=== PATIENT | female | born 1975 | race Caucasian/White ===

== ENCOUNTER → 2019-10-09 09:56 | Outpatient (CLI) | payer OTHER, SELFPAY ==
--- NOTE | ~2019-10-09 | DEXA_ITS ---
Bone Density Report Name: Shauna Neville Age: 44 Sex: Female Ethnicity: White Date of : 1975 Indication: height loss; history of glucocorticoids; end stage renal disease; Referring Provider: DAILY, VENANCIO Dhaliwal Study: Bone densitometry was performed. Exam Date: October 09, 2019 Accession number: [id number] Bone Density: Region BMD T-score Z-score Classification AP Spine (L1-L4) 1.118 0.6 1.0 Normal Femoral Neck (Left) 0.991 1.3 1.6 Normal Total Hip (Left) 1.164 1.8 2.1 Normal Femoral Neck (Right) 1.066 2.0 2.3 Normal Total Hip (Right) 1.215 2.2 2.5 Normal Total Hip Mean 1.190 2.0 2.3 Normal World Health Organization criteria for BMD impression classify patients as: Normal (T-score at or above -1.0), Osteopenia (T-score between -1.0 and -2.5), or Osteoporosis (T-score at or below -2.5). 10-year Fracture Risk: FRAX not reported because: Premenopausal woman All T-scores for Spine Total, Hip Total, Femoral Neck at or above -1.0 Clinical Information Provided by Patient: Has taken Glucocorticoids Has used the following medications: Vitamin D Has the following medical conditions: End stage renal disease Patient maximum height was 72 Drinks caffeinated beverages Onset of menses at age 15 Premenopausal Number of children 0 Impression: The patient's bone mass is within expected range for age, gender and ethnicity. The patient has risk factors, including: history of glucocorticoid therapy. Discussion: BONE DENSITY IS WITHIN EXPECTED LIMITS FOR AGE, SEX AND RACE. Bone density is within expected limits for age, sex and race at all sites measured. The patient should follow a healthful lifestyle (good nutrition with adequate calcium and vitamin D, and appropriate weight-bearing exercise). Follow-Up: Consider repeating this study in 5 years or sooner if there is some new clinical indication. Reported by: WINSTON on 10/09/2019 10:42:00 AM. Reviewed, dictated and finalized at location ALeticia MCKEE
--- NOTE | ~2019-10-09 | XR_ITS ---
EXAMINATION: XR knee LT 3V DATE: 10/09/2019 10:41 INDICATION: Left knee pain. TECHNIQUE: 3 views of left knee were obtained. COMPARISON: None. FINDINGS: Bone alignment is normal. No fracture. There is mild tricompartmental osteoarthritis. There is a small knee joint effusion. IMPRESSION: 1. Mild left knee osteoarthritis. 2. Small left knee joint effusion. Reviewed, dictated and finalized at location A.
== END ==
PROVIDERS: Visit Provider Family Medicine
DX: Z79.899 Other long term (current) drug therapy (principal); M17.12 Unilateral primary osteoarthritis, left knee; M25.462 Effusion, left knee
CPT/HCPCS: 73562; 77080

== ENCOUNTER → 2019-12-09 08:15 | Outpatient (CLI) | payer OTHER, SELFPAY ==
--- NOTE | ~2019-12-09 | MR_ITS ---
EXAMINATION: MR knee LT wo con DATE: 12/09/2019 09:01 INDICATION: Anterior left knee pain and swelling. TECHNIQUE: Magnetic resonance imaging (MRI) of the left knee was performed without intravenous contra st. Sequences included axial PD-weighted FS FSE, coronal PD-weighted FSE and PD-weighted FS FSE, sagi ttal PD-weighted FSE, and sagittal T2-weighted FS FSE. COMPARISON: Left knee radiographs 10/09/2019 FINDINGS: Medial compartment: Medial meniscus is normal. Medial compartment cartilage is normal. Lateral compartment: Lateral meniscus is normal. Lateral compartment cartilage is normal. Patellofemoral compartment: There is full-thickness cartilage loss of patellar lateral facet with mild subchondral edema-like mar row signal intensity. There is full-thickness cartilage loss of lateral trochlea with mild subchondra l edema-like marrow signal intensity. Ligaments and tendons: Anterior and posterior cruciate ligaments are normal. Medial collateral ligament is normal. There are changes of prior sprain of fibular collateral ligament characterized by increased signal intensity p roximally. The patellar tendon is normal. Fluid: There is a moderate-sized knee joint effusion. There is trace fluid in a Marshall's cyst. There is mild prepatellar and superficial infrapatellar bursitis. IMPRESSION: 1. Severe chondrosis of patellofemoral compartment. 2. Moderate-sized knee joint effusion. Reviewed, dictated and finalized at location A.
== END ==
PROVIDERS: Visit Provider Orthopaedic Surgery
DX: M25.562 Pain in left knee (principal); M22.2X2 Patellofemoral disorders, left knee; M25.462 Effusion, left knee
CPT/HCPCS: 73721

== ENCOUNTER → 2020-05-13 17:55 | Outpatient (CLI) | payer OTHER, SELFPAY ==
--- NOTE | ~2020-05-13 | MM_ITS ---
EXAMINATION: MM screening divya BI w [facility] HISTORY: Screening mammogram TECHNIQUE: Craniocaudal and mediolateral oblique 3-D tomosynthesis images were obtained and synthetic 2-D images were generated. CAD analysis was submitted and interpreted. COMPARISON: No prior mammogram is available for comparison at this institution. BREAST PARENCHYMAL COMPOSITION: There are scattered areas of fibroglandular density. FINDINGS: There is no evidence of suspicious mass, calcification, or architectural distortion to sugg est malignancy in either breast. There has been no suspicious interval change. IMPRESSION: 1. No mammographic evidence of malignancy. 2. Recommend routine screening mammography in one year. BI-RADS Category 1: Negative Reviewed, dictated and finalized at location A. 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
== END ==
PROVIDERS: Visit Provider Nurse Practitioner Obstetrics & Gynecology
DX: Z12.31 Encounter for screening mammogram for malignant neoplasm of breast (principal)
CPT/HCPCS: 77063; 77067

== ENCOUNTER 2020-10-18 02:52 | Emergency (ER) | payer OTHER, SELFPAY ==
[2020-10-18] VITALS (11 sets, daily range): BP systolic 115–154; BP diastolic 70–88; PULSE 64–94; RESP 12–18; TEMP 36.4–36.8; O2SAT 93–100
--- NOTE | ~2020-10-18 | US_ITS ---
US abdomen limited INDICATION: Right upper quadrant pain PROCEDURE: Realtime right upper abdominal ultrasound. COMPARISON: No prior studies for comparison. FINDINGS: The pancreas is normal without focal mass or pancreatic ductal dilation. Liver is enlarged . No focal hepatic masses are identified. There is normal directional flow in the portal vein. Gallbladder contains sludge. No definite stones, gallbladder wall thickening or pericholecystic fluid . Common bile duct measures 7 mm. No sonographic Rivers's sign. There are multiple small cysts in t he right kidney. IMPRESSION: 1: Gallbladder sludge with mild biliary dilatation. Consider acalculous cholecystitis in the appropri ate clinical setting. 2: Hepatomegaly. Reviewed, dictated and finalized at location A. IMPRESSION: 1: Gallbladder sludge with mild biliary dilatation. Consider acalculous cholecy stitis in the appropriate clinical setting. 2: Hepatomegaly.
--- NOTE | ~2020-10-18 | CT_ITS ---
EXAMINATION: CT abdomen pelvis wo con DATE: 10/18/2020 04:17 INDICATION: Lower abdominal pain bilaterally. TECHNIQUE: Computed tomography (CT) of the abdomen and pelvis was performed without intravenous contr ast. The dose-length product was 1482.05 mGy-cm. Automated exposure control and iterative reconstruct ion technique were employed. COMPARISON: CT dated 06/08/2016. FINDINGS: Lung bases are unremarkable. Heart size normal. No significant pleural or pericardial effus ion. No significant vascular abnormality. No lymphadenopathy. Mild left perinephric stranding, nonspe cific. There are in numerable bilateral renal cysts, consistent with polycystic kidney disease. There is a t ransplant kidney in the right pelvis. Bladder is decompressed. There is an IUD in the endometrium. Th ere is fluid throughout the small bowel which is nondilated which may represent ileus or enteritis. The liver, spleen, pancreas, adrenal glands are unremarkable. Normal appendix. Bladder is decompresse d. IMPRESSION: 1. Fluid-filled nondilated small bowel loops which may relate to ileus or enteritis. 2: Mild left perinephric stranding. Cannot exclude pyelonephritis. Innumerable renal cysts, consisten t with adult polycystic kidney disease. Reviewed, dictated and finalized at location A. IMPRESSION: 1. Fluid-filled nondilated small bowel loops which may relate to ileus or enter itis. 2: Mild left perinephric stranding. Cannot exclude pyelonephritis. Innumerable renal cysts, consistent with adult polycystic kidney disease.
--- NOTE | 2020-10-18 03:19 | ED.ABDPAIN ---
HPI - Abdominal Pain General Chief Complaint: Abdominal Pain <Linus Corrales MD - Last Filed: 10/29/20 09:54> Stated Complaint: abdominal pain <Linus Corrales MD - Last Filed: 10/29/20 09:54> Time Seen by Provider: 10/18/20 03:04 <Linus Corrales MD - Last Filed: 10/29/20 09:54> History of Present Illness HPI narrative: 45 yo female w/ h/o polycystic kidney disease presents to the ED for abdominal pain. RUQ abdominal pain for about the past 10 days. Radiates to mid back. Associated with nausea and vomiting. Scheduled for US ,but pain became worse. She has a h/o renal transplant. <Linus Corrales MD - Last Filed: 10/29/20 09:54> Related Data Home Medications: Home Medications Medication Instructions Recorded Confirmed acyclovir 10/18/20 10/18/20 amlodipine 10/18/20 aspirin 10/18/20 atorvastatin 10/18/20 levothyroxine 10/18/20 mycophenolate sodium [Myfortic] PO 10/18/20 prednisone 10/18/20 ramipril mg 10/18/20 tacrolimus [Prograf] 10/18/20 <Linus Corrales MD - Last Filed: 10/29/20 09:54> Allergies/Adverse Reactions: Allergies Allergy/AdvReac Type Severity Reaction Status Date / Time Penicillins Allergy Mild Hives Verified 10/18/20 03:03 <Linus Corrales MD - Last Filed: 10/29/20 09:54> Review of Systems Review of Systems: All systems reviewed & are unremarkable except as noted in HPI and below <Linus Corrales MD - Last Filed: 10/29/20 09:54> Constitutional: Constitutional: Denies fever(s) <Linus Corrales MD - Last Filed: 10/29/20 09:54> ENT: Denies sore throat <Linus Corrales MD - Last Filed: 10/29/20 09:54> Cardiovascular: Cardiovascular: Denies chest pain <Linus Corrales MD - Last Filed: 10/29/20 09:54> Respiratory: Respiratory: Denies dyspnea <Linus Corrales MD - Last Filed: 10/29/20 09:54> Gastrointestinal: Gastrointestinal: Reports abdominal pain, Reports nausea and Reports vomiting <Linus Corrales MD - Last Filed: 10/29/20 09:54> [facility] Past Medical History Medical History: Medical History (Updated 10/20/20 @ 00:00 by Benita Torres) Hypertension Polycystic kidney disease <Linus Corrales MD - Last Filed: 10/29/20 09:54> Surgical History Surgical History: Surgical History (Updated 10/18/20 @ 08:09 by Germaine Capellan MD) History of kidney transplant <Linus Corrales MD - Last Filed: 10/29/20 09:54> Social History Social History: Social History (Updated 10/18/20 @ 08:09 by Germaine Capellan MD) Smoking status: Never smoker Alcohol use details: social drinker <Linus Corrales MD - Last Filed: 10/29/20 09:54> Exam Const: General: no acute distress and alert <Germaine Capellan MD - Last Filed: 10/18/20 19:19> Orientation/consciousness: patient oriented x3 <Germaine Capellan MD - Last Filed: 10/18/20 19:19> Resp: Effort & Inspection: normal respiratory effort and no retractions <Germaine Capellan MD - Last Filed: 10/18/20 19:19> Auscultation: clear to auscultation bilaterally <Germaine Capellan MD - Last Filed: 10/18/20 19:19> Cardio: Rate: regular rate <Germaine Capellan MD - Last Filed: 10/18/20 19:19> Rhythm: regular rhythm <Germaine Capellan MD - Last Filed: 10/18/20 19:19> Heart sounds: no murmurs <Germaine Capellan MD - Last Filed: 10/18/20 19:19> GI: GI Palp: Yes Soft to palpation, Yes Tenderness to palpation present (GI) (RUQ), Yes Guarding due to palpation present (GI) and No Rigid due to palpation <Germaine Capellan MD - Last Filed: 10/18/20 19:19> Auscultation: normal bowel sounds <Germaine Capellan MD - Last Filed: 10/18/20 19:19> Skin: General skin exam: normal color <Germaine Capellan MD - Last Filed: 10/18/20 19:19> Neuro: General: patient oriented x3, moves all extremities and CN's II-XI intact bilaterally <Germaine Capellan MD - Last Filed: 10/18/20 19:19> Extrem: General: normal to inspection
[2020-10-18 03:22] LABS: Basophils Percent Auto 0.3 % (0.2-1.2); Eosinophils Absolute Auto 0.1 K/mm3 (0-0.3); Eosinophils Percent Auto 0.7 % (0-4.4); Hematocrit 37.7 % (37.0-47.0); Hemoglobin 12.4 g/dL (12.0-15.0); Immature Granulocyte Absolute 0.03 K/mm3 (0.00-0.031); Immature Granulocyte Percent A 0.3 % (0-0.5); Lymphocytes Absolute Auto 1.48 K/mm3 (0.9-3.2); Lymphocytes Percent Auto 13.7 % (18.3-44.2); Mean Corpuscular HGB Conc 32.9 g/dl (32-36); Mean Corpuscular Hemoglobin 30.5 pg (26-34); Mean Corpuscular Volume 92.9 fl (80-100); Mean Platelet Volume 10.3 fl (7.4-10.4); Monocytes Absolute Auto 1.2 K/mm3 (0.1-0.6); Monocytes Percent Auto 10.9 % (2.6-8.5); Neutrophils Percent Auto 74.1 % (45.5-73.1); Platelet Count Result 191 k/mm3 (150-375); Red Blood Count 4.06 M/mm3 (4.2-5.4); Red Cell Distribution Width 13.4 % (11.5-14.5); White Blood Count 10.8 K/mm3 (4.5-10.0)
[2020-10-18 03:37] LABS: Alanine Aminotransferase 26 U/L (4-35); Albumin Level 4.2 g/dL (3.5-5.1); Alkaline Phosphatase 53 U/L (38-126); Anion Gap 11 mmol/L (8-16); Aspartate Amino Transferase 25 U/L (14-36); Bilirubin,Total 1.3 mg/dL (0.2-1.3); Blood Urea Nitrogen 23 mg/dL (7-17); Calcium 9.3 mg/dL (8.4-10.2); Carbon Dioxide 17 mmol/L (22-30); Chloride 104 mmol/L (98-107); Estimated CRCL calculation 65 ml/min; Estimated Glomerular Filt Rate 41; Glucose 99 mg/dL (65-110); Lipase 189 U/L (23-300); Potassium 4.6 mmol/L (3.4-5.0); Sodium 132 mmol/L (137-145)
[2020-10-18] MEDS: ONDANSETRON INJ 4 MG/2 ML VIAL IV PUSH ×2 (03:41→18:38)
[2020-10-18] MEDS: fentaNYL CITRATE INJ (*CRX) 100 MCG/2 ML VIAL 50 MCG IV PUSH (03:41)
[2020-10-18 04:17] LABS: Add Urine Microscopic? YES; Appearance Urine Clear (Clear); Bacteria Urine Trace /hpf; Bilirubin Urine Negative (Negative); Blood Urine Negative (Negative); Color Urine Yellow (Yellow); Glucose Urine UA Negative (Negative); Ketones Urine Negative (Negative); Leukocyte Esterase Ur Trace LEU/UL (Negative); Mucus Urine Rare /lpf; Nitrate Urine Negative (Negative); Protein Urine Negative (Negative); RBC Urine 0-2 /hpf (0-2); Specific Grav Ur 1.015 (1.001-1.035); Squamous Epithelial Cell Urine Few /hpf (Few); Urobilinogen Urine Negative mg/dL (<2.0); WBC Urine 0-3 /hpf
[2020-10-18] MEDS: SODIUM CHLORIDE 0.9% IV 1,000 ML 999 ML IV CONT (04:20)
--- NOTE | 2020-10-18 09:02 | PC.NURSE ---
Spoke with [facility] transfer center to give triage information about patient. They said that she has been accepted to the surgical service but will likely not get a bed until this afternoon after discharges. Per surgeon pt unlikely to go to surgery today so she does not need to be NPO at this time. Pt given ice chips, refusing food at this time.
[2020-10-18] MEDS: HYDROmorphone HCL INJ (*CRX) 1 MG/ML SYR 0.5 MG IV PUSH ×2 (09:54→14:12)
--- NOTE | 2020-10-18 18:20 | PC.NURSE ---
Patient reports increased pain, EDP aware, orders obtained.
[2020-10-18] MEDS: HYDROmorphone HCL INJ (*CRX) 1 MG/ML SYR IV PUSH (18:37)
[2020-10-18] MEDS: SODIUM CHLORIDE 0.9% IV 1,000 ML 150 ML IV CONT (18:38)
--- NOTE | 2020-10-18 22:04 | PC.NURSE ---
Nursing report called to JARRET Anne, at [facility]. Patient is to go to Room 6583-bed 2. Phone number to floor is [phone]
--- NOTE | 2020-10-18 22:08 | PC.NURSE ---
Called [facility] to request transport. ETA [phone]
--- NOTE | 2020-10-18 23:39 | PC.NURSE ---
called [facility] for ETA update. ETA [phone]
--- NOTE | 2020-10-18 23:55 | PC.NURSE ---
Patient requested to take her scheduled medications, ERP notified. Patient has her medications with her, per ERP is okay to take her own prescribed meds.
[2020-10-19 00:57] VITALS: BP 115/78; PULSE 75; RESP 18; TEMP 36.9; O2SAT 98
== END 2020-10-19 00:59 | disposition short-term general hospital (02) ==
PROVIDERS: Emergency Provider Emergency Medicine; PCP Family Medicine
DX: K81.0 Acute cholecystitis (principal); N28.1 Cyst of kidney, acquired; I10 Essential (primary) hypertension; Z94.0 Kidney transplant status; R16.0 Hepatomegaly, not elsewhere classified
CPT/HCPCS: 36415; 74176; 76705; 80053; 81001; 81025; 83690; 85025; 96361; 96365; 96375; 96376; 99285; J0696; J1170; J2405; J3010; J7030

== ENCOUNTER → 2021-02-21 10:15 | Outpatient (CLI) | payer OTHER, SELFPAY ==
--- NOTE | ~2021-02-21 | CT_ITS ---
EXAMINATION: CT sinus wo con DATE: 02/21/2021 10:34 INDICATION: Spontaneous ecchymosis. Previous sinus surgery in 2019.. TECHNIQUE: Computed tomography (CT) of the paranasal sinuses was performed without intravenous contra st. The dose-length product was 280.01 mGy-cm. Automated exposure control and iterative reconstructio n technique were employed. COMPARISON: None FINDINGS: There is mucosal thickening of the maxillary sinuses. No mucoperiosteal reaction. Ostiomeat al units are patent. Rightward nasal septal deviation. Mucosal thickening of the anterior ethmoid air cells. Mastoids are pneumatized. No air-fluid levels. IMPRESSION: 1. Mild mucosal thickening of the maxillary and ethmoid sinuses. Reviewed, dictated and finalized at location A. 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
== END ==
PROVIDERS: PCP Family Medicine; Visit Provider Otolaryngology
DX: J32.0 Chronic maxillary sinusitis (principal); J32.2 Chronic ethmoidal sinusitis
CPT/HCPCS: 70486

== ENCOUNTER 2021-04-04 08:34 | Outpatient (CLI) | payer OTHER, SELFPAY ==
[2021-04-04 09:15] LABS: Anion Gap 8 mmol/L (8-16); Blood Urea Nitrogen 20 mg/dL (7-17); Calcium 9.2 mg/dL (8.4-10.2); Carbon Dioxide 24 mmol/L (22-30); Chloride 106 mmol/L (98-107); Estimated Glomerular Filt Rate 41; Glucose 105 mg/dL (65-110); Prothrombin Time 12.9 Seconds (11.1-14.7); Sodium 138 mmol/L (137-145)
[2021-04-04 09:16] LABS: Partial Thromboplastin Time 24.1 SECONDS (22.3-36.8)
== END 2021-04-04 08:35 | disposition home or self-care (01) ==
PROVIDERS: Anesthesiology; PCP Family Medicine; Visit Provider Obstetrics & Gynecology
DX: Z94.0 Kidney transplant status (principal); Z01.818 Encounter for other preprocedural examination
CPT/HCPCS: 36415; 80048; 85610; 85730

== ENCOUNTER 2021-04-08 00:13 | Day surgery (SDC) | payer OTHER, SELFPAY ==
[2021-04-02 16:54] VITALS: BMI 32.8
--- NOTE | 2021-04-02 17:03 | SUR.PREOP ---
Report to the Outpatient Waiting Room, entrance under the green pavilion located off [facility], at time _0830 on date _04/08/21 . OR Time: _1030 . - - A mask is required within the hospital. - Preoperative COVID Testing Requirements: No COVID Test needed if: (proof is required; if not received patient will have Rapid Test prior to entry) - Patient has received COVID Vaccine at least 14 days prior to procedure date or - Patient has positive COVID test result within last 90 days of surgery date. COVID Test needed if above criteria is not met If not COVID vaccinated a COVID test must be conducted within 72 hours of surgery and patient is asked to isolate self from time of testing until procedure. You will go to the [facility] for your COVID testing. The [employer] [employer] [facility] site is located at the corner of [address] [facility]. You will only be called if COVID results are positive and your surgeon may reschedule your elective surgery date. Patients may have clear liquids (water, carbonated beverages, clear teas, apple juice) until 3 hours prior to surgery with a maximum of 20 ounces. - No food from midnight until time of surgery - Infants may have breast milk until 4 hours before surgery, infant formula 6 hours prior to surgery. - Children will be allowed to drink immediately following surgery. If applicable, please bring a bottle or sippy cup to assist with drinking. Juice, water, soda, and popsicles are readily available. For infants on formula, please bring formula the day of surgery. Pacifiers are allowed. Take the following medications with a SIP of water the morning of surgery: __amlodipine,levothyroxine Medications to discontinue per physician n/a Date to take last dose__n/a Please no make-up, nail kinyarwanda, hairspray, perfume, deodorant, or body powder the day of surgery. No jewelry (including any body piercings) or valuables the day of surgery, leave them at home. Please take a shower or bath the night before, or the morning of, surgery with an antibacterial soap. Wear comfortable, loose fitting clothing. Children are encouraged to wear pajamas. - Jewelry must be removed prior to entering the operating room. Rings and piercings that are not removed may be cut off. - The hospital will not accept responsibility for valuables. - Please leave all valuables, including medications, at home the day of surgery. If you are going home after surgery, a licensed petroleum transport driver must drive you home. - NO public transportation without another adult. - We recommend that an adult stay with you for 24 hours following discharge. - We also recommend that you do not drive, make important decision, drink alcoholic beverages, or take any drugs that were not prescribed by your health care provider for at least 24 hours after your discharge time. follow any additional instructions given to you from your surgeon. Telephone instructions given to _miguelina romero_and asked if any additional questions and then verbalized understanding. Patient advised to call surgeon office or pre surgery nurse liaison [phone] if any additional questions.
--- NOTE | 2021-04-07 13:45 | P.PNAN_ITS ---
Anes - Initial Pre Proc Eval Procedure: Operation Date: 04/08/21 10:30 Proposed Procedures p Hysteroscopy Dilation and Curettage Endometrial Ablation using Kathrine, with Intrauterine Device Removal - Steve Gallagher MD Date/Time: 04/07/21 13:45 Surgeon: Steve Gallagher MD Pre Op Diagnosis: menorrhagia Patient Data Age: 46 Gender: F Height: 1.8 m Weight: 106.8 kg Allergies Allergy/AdvReac Type Severity Reaction Status Date / Time adhesive tape Allergy Intermediate Rash Verified 04/08/21 08:59 Penicillins Allergy Intermediate Hives Verified 04/08/21 08:59 Home Medications Medication Instructions Recorded Confirmed Type acyclovir 400 mg PO BID 10/18/20 04/08/21 History amlodipine 2.5 mg PO DAILY 10/18/20 04/08/21 History aspirin 81 mg PO EVERY OTHER DAY 10/18/20 04/08/21 History atorvastatin 10 mg PO DAILY 10/18/20 04/08/21 History levothyroxine 100 mcg PO DAILY 10/18/20 04/08/21 History mycophenolate sodium [Myfortic] 180 mg PO BID 10/18/20 04/08/21 History prednisone 5 mg PO DAILY 10/18/20 04/08/21 History ramipril 10 mg PO BID 10/18/20 04/08/21 History tacrolimus [Prograf] 1 mg PO BID 10/18/20 04/08/21 History doxycycline hyclate 100 mg PO DAILY #14 cap 04/08/21 Rx Patient hx anesthesia problems: none Family hx anesthesia problems: none Results Review: All pre-operative results and documents have been reviewed as part of the pre-operative evaluation. [facility] Past Medical History Medical History Abnormal uterine bleeding Hyperlipidemia Hypertension Obesity Polycystic kidney disease Surgical History Surgical History (Updated 04/08/21 @ 09:29 by Kelle Mendez CRNA) History of kidney transplant Kidney transplanted kidney transplant 2011-no problems doing well on meds Social History Social History Smoking status: Former smoker Tobacco type: cigarettes Smoking end date: 03/22/09 Alcohol intake: current Drinks per week: 3 Alcohol use details: social drinker Living arrangements: with family Spiritual care concerns: No Anes - Eval Final PreProcedure Day of Procedure 04/07/21 13:45 Patient weight: obese Heart: regular rate and rhythm Lungs: clear to auscultation and normal air movement Airway: Mallampati scale class II Neurological: alert and oriented Last oral intake: >/= 8 hours ASA classification: III Emergent: no Anesthetic plan: proceed Anesthesia type and monitoring: general GIVS and LMA Results Review: All pre-operative results and documents have been reviewed as part of the pre-operative evaluation. Informed Consent: The patient's anesthetic plan and its attendant risks and benefits were discussed with the patient/family/POA. Questions were solicited and answers provided to the satisfaction of the patient/family/POA.
[2021-04-08] VITALS (8 sets, daily range): BP systolic 121–137; BP diastolic 72–87; PULSE 48–59; RESP 12–16; TEMP 36.2–37.2; O2SAT 92–100
[2021-04-08] MEDS: ACETAMINOPHEN 500 MG TABLET 1000 MG PO (09:03)
[2021-04-08] MEDS: LACTATED RINGERS 1,000 ML 30 ML IV CONT (09:24)
--- NOTE | 2021-04-08 09:26 | WPDANESEPP ---
Anes - Eval Pre Procedure Procedure: Operation Date: 04/08/21 10:30 Proposed Procedures p Hysteroscopy Dilation and Curettage Endometrial Ablation using Kathrine, with Intrauterine Device Removal - Steve Gallagher MD Date/Time: 04/08/21 09:26 Pre Op Diagnosis: menorrhagia Patient Data Age: 46 Gender: F Height: 1.8 m Weight: 111.7 kg Last Vital Signs Temp 37.2 C 04/08/21 09:13 Pulse 57 L 04/08/21 09:13 Resp 16 04/08/21 09:13 BP 137/83 04/08/21 09:13 Pulse Ox 99 04/08/21 09:13 Allergies Allergy/AdvReac Type Severity Reaction Status Date / Time adhesive tape Allergy Intermediate Rash Verified 04/08/21 08:59 Penicillins Allergy Intermediate Hives Verified 04/08/21 08:59 Home Medications Medication Instructions Recorded Confirmed Type acyclovir 400 mg PO BID 10/18/20 04/08/21 History amlodipine 2.5 mg PO DAILY 10/18/20 04/08/21 History aspirin 81 mg PO EVERY OTHER DAY 10/18/20 04/08/21 History atorvastatin 10 mg PO DAILY 10/18/20 04/08/21 History levothyroxine 100 mcg PO DAILY 10/18/20 04/08/21 History mycophenolate sodium [Myfortic] 180 mg PO BID 10/18/20 04/08/21 History prednisone 5 mg PO DAILY 10/18/20 04/08/21 History ramipril 10 mg PO BID 10/18/20 04/08/21 History tacrolimus [Prograf] 1 mg PO BID 10/18/20 04/08/21 History Patient hx anesthesia problems: none Family hx anesthesia problems: none Results Review: All pre-operative results and documents have been reviewed as part of the pre-operative evaluation. [facility] Past Medical History Medical History Abnormal uterine bleeding Hyperlipidemia Hypertension Obesity Polycystic kidney disease Surgical History Surgical History (Updated 04/08/21 @ 09:29 by Kelle Mendez CRNA) History of kidney transplant Kidney transplanted kidney transplant 2011-no problems doing well on meds Social History Social History Smoking status: Former smoker Tobacco type: cigarettes Smoking end date: 03/22/09 Alcohol intake: current Drinks per week: 3 Alcohol use details: social drinker Living arrangements: with family Spiritual care concerns: No Exam Day of Procedure 04/08/21 09:26 Patient weight: obese Heart: regular rate and rhythm Lungs: clear to auscultation Airway: Mallampati scale class II Neurological: alert and oriented
--- NOTE | 2021-04-08 09:37 | WPDHPUPDATE1 ---
History and Physical Update Update Date/Time: 04/08/21 09:37 History and Physical has been reviewed, including an updated exam of the patient. There are NO changes in the patient's condition. Risks, benefits, and alternatives have been discussed and questions answered. Patient agrees to proceed with procedure.
--- NOTE | 2021-04-08 10:27 | W.PM.PROC2 ---
Procedure Note - Detailed Date of Procedure 04/08/21 Pre-op Diagnosis menorrhagia, malpositioned IUD Post-op Diagnosis same Procedure Performed endometrial ablation with hysteroscopy d&c, hysteroscopic IUD removal Surgeon Steve Gallagher MD Anesthesia MAC Indications Severe menorrhagia. Malpositioned IUD Findings Normal vulva vagina and cervix. Normal endometrium. malposition/embedded IUD Description of Procedure The patient was taken to the operating room. She was prepped and draped in the dorsal lithotomy position after induction of mac anesthesia. A speculum was placed in the vagina. Cervix grasped with a tenaculum. The cervix was dilated to about 1 cm. The hysteroscope was inserted. The IUD was visualized. It was grasped with hysteroscopic grasper and withdrawn. The above findings were noted. Endometrial curettage was performed with a medium-size curette. All surfaces of the endometrium were affected by the curettage. The specimens were collected and sent to pathology. Measurements were taken of the uterus and cervix. The uterine length was then entered into the hand piece of the Kathrine device. The device was inserted into the intrauterine cavity. The array of the device was expanded. The balloon cuff was inflated. A good seal was achieved. The energy and safety cycles were initiated and completed. The array was collapsed and the instrument was withdrawn after deflating the balloon cuff. Hysteroscope was reinserted. Above findings were noted. The hysteroscope was removed. The patient tolerated the procedure well. The speculum and tenaculum were removed. She was taken to recovery in stable condition. Sponge lap and needle counts were correct x2. Estimated Blood Loss 15 Pathology yes Complications No immediate complications Condition stable Disposition same day
[2021-04-08] MEDS: fentaNYL CITRATE INJ (*CRX) 100 MCG/2 ML VIAL 25 MCG IV PUSH ×2 (11:09→11:12)
== END 2021-04-08 12:25 | disposition home or self-care (01) ==
PROVIDERS: PCP Family Medicine; Visit Provider Obstetrics & Gynecology
PROC: 0U5B8ZZ Destruction of Endometrium, Via Natural or Artificial Opening Endoscopic (ICD-10-PCS; CPT 58563; principal; 2021-04-08 10:30)
DX: N92.0 Excessive and frequent menstruation with regular cycle (principal); N85.8 Other specified noninflammatory disorders of uterus; T83.32XA Displacement of intrauterine contraceptive device, initial encounter; Y84.8 Other medical procedures as the cause of abnormal reaction of the patient, or of later complication, without mention of misadventure at the time of the procedure; I10 Essential (primary) hypertension; E78.5 Hyperlipidemia, unspecified; Q61.3 Polycystic kidney, unspecified; Z94.0 Kidney transplant status; E66.9 Obesity, unspecified; Z68.34 Body mass index [BMI] 34.0-34.9, adult; Z87.891 Personal history of nicotine dependence
CPT/HCPCS: 58563; 58562; 36415; 80048; 85610; 85730; 88300; 88305; A9270; J0690; J1100; J2250; J2270; J2405; J2704; J3010; J7030; J7120

== ENCOUNTER 2021-06-19 14:45 | Emergency (ER) | payer OTHER, SELFPAY ==
[2021-06-19 14:53] VITALS: BP 149/81; PULSE 75; RESP 16; TEMP 36.9; O2SAT 99
--- NOTE | 2021-06-19 14:55 | ED.GENADULT ---
HPI - General Adult General Chief complaint: Wound/Laceration Stated complaint: CUT LEFT THUMB Time Seen by Provider: 06/19/21 14:55 Source: patient Mode of arrival: ambulatory Limitations: no limitations History of Present Illness HPI narrative: 46-year-old female presents with laceration to left thumb. Bleeding controlled on arrival. Notes that she cut herself with a kitchen knife. Kitchen knife was clean. Range of motion and distal neurovascular intact. All systems reviewed and negative except as noted above. Related Data Home Medications Medication Instructions Recorded Confirmed acyclovir 400 mg PO BID 10/18/20 04/08/21 amlodipine 2.5 mg PO DAILY 10/18/20 04/08/21 aspirin 81 mg PO EVERY OTHER DAY 10/18/20 04/08/21 atorvastatin 10 mg PO DAILY 10/18/20 04/08/21 levothyroxine 100 mcg PO DAILY 10/18/20 04/08/21 mycophenolate sodium [Myfortic] 180 mg PO BID 10/18/20 04/08/21 prednisone 5 mg PO DAILY 10/18/20 04/08/21 ramipril 10 mg PO BID 10/18/20 04/08/21 tacrolimus [Prograf] 1 mg PO BID 10/18/20 04/08/21 esomeprazole magnesium 20 mg PO DAILY 06/19/21 06/19/21 levofloxacin 500 mg PO DAILY 06/19/21 06/19/21 Allergies Allergy/AdvReac Type Severity Reaction Status Date / Time adhesive tape Allergy Intermediate Rash Verified 06/19/21 15:00 Penicillins Allergy Intermediate Hives Verified 06/19/21 15:00 Review of Systems Review of Systems: CONSTITUTIONAL: Denies fever, chills, or sweats. EYES: Denies visual changes, redness, or discharge. ENT: Denies rhinorrhea, congestion, sore throat, or otalgia. CARDIOVASCULAR: Denies chest pain, palpitations, or edema. RESPIRATORY: Denies cough or dyspnea. GASTROINTESTINAL: Denies abdominal pain, nausea, vomiting, or diarrhea. GENITOURINARY: Denies dysuria or hematuria. SKIN: Denies rash or itching. Laceration to left thumb. MUSCULOSKELETAL: Denies back pain, joint pain, or myalgia. NEUROLOGIC: Denies headache, numbness, or weakness. PSYCHIATRIC: Denies anxiety or depression. All other systems reviewed are negative, except as documented in HPI. [facility] Past Medical History Medical History (Updated 06/19/21 @ 15:08 by Katerine Lockett NP) Abnormal uterine bleeding Hyperlipidemia Hypertension Obesity Polycystic kidney disease Surgical History Surgical History (Updated 04/08/21 @ 09:29 by Kelle Mendez CRNA) History of kidney transplant Kidney transplanted kidney transplant 2012-no problems doing well on meds Social History Social History Smoking status: Former smoker Tobacco type: cigarettes Smoking end date: 03/22/09 Alcohol intake: current Drinks per week: 3 Alcohol use details: social drinker Spiritual care concerns: No Comments At time of signature, agree with nursing past medical, surgical, social and family history. There is no relevant family history pertinent to the presenting complaint. Exam Narrative: GENERAL: This is a well-nourished, well-developed patient, in no apparent distress. HEAD: normocephalic, atraumatic. EYES: PERRL. Sclera clear/white. Vision is grossly intact. EARS: External ears normal NOSE: External nose normal NECK: Neck supple CARDIOVASCULAR: Regular rate and rhythm without murmurs, gallops, or rubs. RESPIRATORY: Clear to auscultation. Breath sounds equal bilaterally. No wheezes, rales, or rhonchi. SKIN: warm, Dry, with no suspicious lesions or rash, good texture and turgor. There is a less than 1 cm superficial laceration to palmar aspect of left thumb, proximal aspect. NEURO: awake, alert, and oriented to person, place and time. There were no obvious focal neurologic abnormalities. EXTREMITIES: Normal range of motion to all extremities. Extrem: Hand/finger images: 1. less than 1 cm superficial laceration. bleeding controlled. Course Course Level of Care: Express Care Visit Vital Signs Vital signs: Vital Signs Temperature 36.9 C
[2021-06-19 15:04] VITALS: BP 149/81; PULSE 75; RESP 16; TEMP 36.9; O2SAT 99
== END 2021-06-19 15:10 | disposition home or self-care (01) ==
PROVIDERS: Emergency Provider Nurse Practitioner Family; PCP Family Medicine
DX: S61.012A Laceration without foreign body of left thumb without damage to nail, initial encounter (principal); W26.0XXA Contact with knife, initial encounter; Z87.891 Personal history of nicotine dependence; E78.5 Hyperlipidemia, unspecified; I10 Essential (primary) hypertension; E66.9 Obesity, unspecified; Z68.34 Body mass index [BMI] 34.0-34.9, adult; Q61.3 Polycystic kidney, unspecified; Z94.0 Kidney transplant status
CPT/HCPCS: 99212; G0463

== ENCOUNTER → 2021-09-19 11:37 | Outpatient (CLI) | payer OTHER, SELFPAY ==
--- NOTE | ~2021-09-19 | MM_ITS ---
EXAMINATION: MM screening divya BI w [facility] HISTORY: Screening TECHNIQUE: Craniocaudal and mediolateral oblique 3-D tomosynthesis images were obtained and synthetic 2-D images were generated. CAD analysis was submitted and interpreted. COMPARISON: 05/13/2020 BREAST PARENCHYMAL COMPOSITION: There are scattered areas of fibroglandular density. FINDINGS: There is no evidence of suspicious mass, calcification, or architectural distortion to sugg est malignancy in either breast. There has been no suspicious interval change. IMPRESSION: 1. No mammographic evidence of malignancy. 2. Recommend routine screening mammography in one year. BI-RADS Category 1: Negative Reviewed, dictated and finalized at location A.
== END ==
PROVIDERS: PCP Family Medicine; Visit Provider Nurse Practitioner Obstetrics & Gynecology
DX: Z12.31 Encounter for screening mammogram for malignant neoplasm of breast (principal)
CPT/HCPCS: 77063; 77067

== ENCOUNTER 2021-10-17 19:40 | Emergency (ER) | payer OTHER, SELFPAY ==
[2021-10-17 19:47] VITALS: BP 156/77; PULSE 71; RESP 16; TEMP 37.1; O2SAT 99
--- NOTE | 2021-10-17 20:02 | ED.GENADULT ---
HPI - General Adult General Chief complaint: Upper Respiratory Infection Stated complaint: Throat Pain Time Seen by Provider: 10/17/21 20:02 Source: patient Mode of arrival: ambulatory Limitations: no limitations History of Present Illness HPI narrative: 46 year old female presents with concern for possible food bolus. Reports she ate pizza this afternoon and feels like it got stuck. She reports since then she has tried to drink clear fluids and had an episode of vomiting. She reports she has an enlarged thyroid which she contributes to the food getting lodged. She denies trouble breathing MD complaint: Food bolus Related Data Home Medications Medication Instructions Recorded Confirmed acyclovir 400 mg tablet 400 mg PO BID 10/18/20 06/19/21 amlodipine 2.5 mg tablet 2.5 mg PO DAILY 10/18/20 06/19/21 aspirin 81 mg tablet,delayed 81 mg PO EVERY OTHER DAY 10/18/20 06/19/21 release atorvastatin 10 mg tablet 10 mg PO DAILY 10/18/20 06/19/21 levothyroxine 100 mcg tablet 100 mcg PO DAILY 10/18/20 06/19/21 mycophenolate sodium 180 mg 180 mg PO BID 10/18/20 06/19/21 tablet,delayed release (Myfortic) prednisone 5 mg tablet 5 mg PO DAILY 10/18/20 06/19/21 ramipril 10 mg capsule 10 mg PO BID 10/18/20 06/19/21 tacrolimus 1 mg capsule, 1 mg PO BID 10/18/20 06/19/21 immediate-release (Prograf) esomeprazole magnesium 20 mg 20 mg PO DAILY 06/19/21 06/19/21 capsule,delayed release Allergies Allergy/AdvReac Type Severity Reaction Status Date / Time adhesive tape Allergy Intermediate Rash Verified 10/17/21 19:45 Penicillins Allergy Intermediate Hives Verified 10/17/21 19:45 Review of Systems Review of Systems: CONSTITUTIONAL: Denies malaise, chills, sweats, or fever. ENT: Reports feeling of food getting stuck in her esophagus CARDIOVASCULAR: Denies chest pain, palpitations, or edema. RESPIRATORY: Denies cough or dyspnea. GASTROINTESTINAL: Denies abdominal pain, nausea, vomiting All systems reviewed & are unremarkable except as noted in HPI and below PMFSH Past Medical History Medical History (Updated 10/17/21 @ 20:14 by Aaliyah Kevin NP) Abnormal uterine bleeding Hyperlipidemia Hypertension Obesity Polycystic kidney disease Surgical History Surgical History (Updated 04/08/21 @ 09:29 by Kelle Mendez CRNA) History of kidney transplant Kidney transplanted kidney transplant 2011-no problems doing well on meds Social History Social History Smoking status: Former smoker Tobacco type: cigarettes Smoking end date: 03/22/09 Alcohol intake: current Drinks per week: 3 Alcohol use details: social drinker Spiritual care concerns: No Comments At time of signature, agree with nursing past medical, surgical, social and family history. There is no relevant family history pertinent to the presenting complaint Exam Narrative: GENERAL: Nontoxic-appearing and in no acute distress. HEAD: Normocephalic, atraumatic. EYES: PERRLA, sclera clear ENT: Nares clear. Mucous membranes moist.Oropharynx without erythema or lesions, no visible foreign body. Tonsils not enlarged and without exudate. NECK: Supple. CHEST: No respiratory distress. Speaks in full sentences. HEART: Regular rate and rhythm. SKIN: Warm, dry, no visible rash. NEURO: Alert and oriented x3. PSYCH: Normal mood and affect Course Course Emergency Course: Patient is aware of, understands and agrees to treatment plan. Patient agrees to proceed directly to the emergency department. Portions of this record may have been created with voice recognition software Level of Care: Express Care Visit Vital Signs Vital signs: Vital Signs Temperature 98.7 F 10/17/21 19:47 Pulse Rate 71 10/17/21 19:47 Respiratory Rate 16 10/17/21 19:47 Blood Pressure 156/77 H 10/17/21 19:47 Pulse Oximetry 99 10/17/21 19:47 Oxygen Delivery Room Air 10/17/21 19:47 Temperature 98
== END 2021-10-17 20:10 | disposition home or self-care (01) ==
PROVIDERS: Emergency Provider Nurse Practitioner; PCP Family Medicine
DX: R13.10 Dysphagia, unspecified (principal); Z87.891 Personal history of nicotine dependence; E78.5 Hyperlipidemia, unspecified; I10 Essential (primary) hypertension; Q61.3 Polycystic kidney, unspecified; E66.9 Obesity, unspecified; Z68.35 Body mass index [BMI] 35.0-35.9, adult
CPT/HCPCS: 99212; G0463

== ENCOUNTER 2021-10-17 20:20 | Emergency (ER) | payer OTHER, SELFPAY ==
[2021-10-17 20:47] VITALS: BP 154/86; PULSE 60; RESP 18; TEMP 36.6; O2SAT 98
--- NOTE | 2021-10-17 23:00 | ED.GENADULT ---
HPI - General Adult General Chief complaint: Skin/Abscess/Foreign Body Stated complaint: something stuck in throat Time Seen by Provider: 10/17/21 22:42 History of Present Illness HPI narrative: Patient is a 46-year-old female complaining of piece of pizza stuck in my throat started after eating pizza around lunchtime. Patient states that she was able to drink fluids and eat soup tonight without spitting up or vomiting. Patient denies any similar episodes in the past. Patient has no other complaints. Related Data Home Medications Medication Instructions Recorded Confirmed acyclovir 400 mg tablet 400 mg PO BID 10/18/20 10/17/21 amlodipine 2.5 mg tablet 2.5 mg PO DAILY 10/18/20 10/17/21 aspirin 81 mg tablet,delayed 81 mg PO EVERY OTHER DAY 10/18/20 10/17/21 release atorvastatin 10 mg tablet 10 mg PO DAILY 10/18/20 10/17/21 levothyroxine 100 mcg tablet 100 mcg PO DAILY 10/18/20 10/17/21 mycophenolate sodium 180 mg 180 mg PO BID 10/18/20 10/17/21 tablet,delayed release (Myfortic) prednisone 5 mg tablet 5 mg PO DAILY 10/18/20 10/17/21 ramipril 10 mg capsule 10 mg PO BID 10/18/20 10/17/21 tacrolimus 1 mg capsule, 1 mg PO BID 10/18/20 10/17/21 immediate-release (Prograf) esomeprazole magnesium 20 mg 20 mg PO DAILY 06/19/21 10/17/21 capsule,delayed release Allergies Allergy/AdvReac Type Severity Reaction Status Date / Time adhesive tape Allergy Intermediate Rash Verified 10/17/21 22:50 Penicillins Allergy Intermediate Hives Verified 10/17/21 22:50 Review of Systems Review of Systems: All systems reviewed & are unremarkable except as noted in HPI and below Constitutional: Constitutional: Denies body ache(s), Denies chills, Denies excessive sweating, Denies fatigue, Denies fever(s), Denies headache(s), Denies lethargy, Denies malaise, Denies weakness and Denies weight loss Eyes: Eyes: Denies blurry vision, Denies change in vision and Denies loss of vision ENT: Denies dizziness, Denies ear discharge, Denies headache(s), Denies lip swelling, Denies epistaxis, Denies nasal congestion, Denies neck pain, Denies throat swelling and Denies tongue swelling Cardiovascular: Cardiovascular: Denies chest pain, Denies chest pain at rest, Denies chest pain with activity, Denies diaphoresis, Denies rapid heart rate, Denies edema, Denies irregular heart rhythm, Denies lightheadedness, Denies palpitations, Denies dyspnea and Denies dyspnea on exertion Respiratory: Respiratory: Denies chest congestion, Denies cough, Denies hemoptysis, Denies dyspnea and Denies dyspnea on exertion Gastrointestinal: Gastrointestinal: Denies abdominal pain, Denies melena, Denies hematochezia, Denies diarrhea, Denies nausea, Denies vomiting and Denies hematemesis Musculoskeletal: Musculoskeletal: Denies abnormal gait, Denies deformity, Denies joint swelling, Denies limited range of motion, Denies neck pain and Denies numbness Neurologic: Denies Abnormal speech present, Denies abnormal gait, Denies confusion, Denies dizziness, Denies headache(s), Denies focal weakness, Denies loss of vision, Denies numbness, Denies Other visual disturbances, Denies Sensory deficit (Neuro) and Denies weakness Psychiatric: Psychiatric: Denies confusion, Denies depression, Denies auditory hallucinations, Denies homicidal ideation and Denies suicidal ideation Endocrine: Endocrine: Denies cold intolerance, Denies excessive sweating, Denies fatigue, Denies heat intolerance and Denies palpitations Hematologic/Lymphatic: Hematologic/Lymphatic: Denies easy bleeding and Denies easy bruising Allergic/Immunologic: Allergic/Immunologic: Denies lip swelling, Denies throat swelling and Denies tongue swelling PMFSH Past Medical History Medical History Abnormal uterine bleeding Hyperlipidemia Hypertension Obesity Polycystic kidney disease Surgical History Surgical History His
[2021-10-17] MEDS: LIDOCAINE HCL 2% VISC SOLN 15 ML UDC PO (23:51)
== END 2021-10-18 00:30 | disposition home or self-care (01) ==
LOC: ANHED 23:55
PROVIDERS: Emergency Provider Emergency Medicine; PCP Family Medicine
DX: R13.10 Dysphagia, unspecified (principal); E78.5 Hyperlipidemia, unspecified; I10 Essential (primary) hypertension; E28.2 Polycystic ovarian syndrome; Z94.0 Kidney transplant status; E66.9 Obesity, unspecified; Z68.34 Body mass index [BMI] 34.0-34.9, adult; Z79.82 Long term (current) use of aspirin; Z87.891 Personal history of nicotine dependence
CPT/HCPCS: 99283

== ENCOUNTER → 2021-12-11 15:51 | Outpatient (CLI) | payer OTHER, SELFPAY ==
--- NOTE | ~2021-12-11 | US_ITS ---
US thyroid INDICATION: Nontoxic goiter. TECHNIQUE: Real-time sonographic images of the thyroid gland were obtained. COMPARISON: No prior studies for comparison. FINDINGS: The right thyroid lobe measures 4.9 x 1.4 x 1.4 cm. The left thyroid lobe measures 4 x 1.2 x 1.3 cm. There is normal echotexture and echogenicity throughout the thyroid gland. No discrete nod ules identified. Normal vascular flow is present. IMPRESSION: 1. Normal thyroid without discrete nodule or abnormal vascularity. Reviewed, dictated and finalized at location A.
== END ==
PROVIDERS: PCP Family Medicine; Visit Provider Nurse Practitioner
DX: E04.9 Nontoxic goiter, unspecified (principal)
CPT/HCPCS: 76536

== ENCOUNTER 2022-03-24 14:00 | Emergency (ER) | payer OTHER, SELFPAY ==
--- NOTE | 2022-03-24 14:03 | ED.URI ---
HPI - URI/Sore Throat General Chief Complaint: Upper Respiratory Infection Stated Complaint: sinus pressure; drainage Time Seen by Provider: 03/24/22 14:02 Source: patient Mode of arrival: ambulatory Limitations: no limitations History of Present Illness HPI Narrative: Shauna is a 47-year-old female patient presenting to the clinic today with complaints sinus drainage and sinus pressure x7 days. She reports she is heading to the [facility] tomorrow and is wanting to see about getting some medication for her sinus infection prior to going. States she has been having green and yellow nasal drainage. No fever or chills. MD elicited complaint: rhinorrhea, nasal congestion and sinus pain Related Data Home Medications Medication Instructions Recorded Confirmed acyclovir 400 mg tablet 400 mg PO BID 10/18/20 03/24/22 amlodipine 2.5 mg tablet 2.5 mg PO DAILY 10/18/20 03/24/22 aspirin 81 mg tablet,delayed 81 mg PO EVERY OTHER DAY 10/18/20 03/24/22 release atorvastatin 10 mg tablet 10 mg PO DAILY 10/18/20 03/24/22 mycophenolate sodium 180 mg 180 mg PO BID 10/18/20 03/24/22 tablet,delayed release (Myfortic) prednisone 5 mg tablet 5 mg PO DAILY 10/18/20 03/24/22 ramipril 10 mg capsule 10 mg PO BID 10/18/20 03/24/22 tacrolimus 1 mg capsule, 1 mg PO BID 10/18/20 03/24/22 immediate-release (Prograf) esomeprazole magnesium 20 mg 20 mg PO DAILY 06/19/21 03/24/22 capsule,delayed release levothyroxine 137 mcg tablet 137 mcg DIRECTED 03/24/22 03/24/22 (Unithroid) Allergies Allergy/AdvReac Type Severity Reaction Status Date / Time adhesive tape Allergy Intermediate Rash Verified 03/24/22 14:15 Penicillins Allergy Intermediate Hives Verified 03/24/22 14:15 Review of Systems Review of Systems: Pertinent positives per HPI. Patient denies any fever, chills, rash, headache, visual changes, dizziness, cough, shortness of breath, chest pain, palpitations, nausea, vomiting, diarrhea, constipation, abdominal pain, or any urinary issues. PMFSH Past Medical History Medical History Abnormal uterine bleeding Hyperlipidemia Hypertension Obesity Polycystic kidney disease Surgical History Surgical History History of kidney transplant Kidney transplanted kidney transplant 2011-no problems doing well on meds Social History Social History Smoking status: Former smoker Tobacco type: cigarettes Smoking end date: 03/22/09 Alcohol intake: current Drinks per week: 3 Alcohol use details: social drinker Spiritual care concerns: No Comments At the time of my signature, I reviewed and agree with the nursing past medical, surgical, social, and family history. There is no relevant family history pertinent to the patient complaint. Exam Narrative: General: Well-developed, well nourished, in no apparent distress Head: Normocephalic, atraumatic Eyes: Pupils equally round and reactive to light bilaterally, EOM intact, sclera and conjunctive clear, no discharge, lids normal Ears: TMs intact and clear, ear canals clear, no drainage, grossly hearing normal. Nose: Nares patent, green nasal discharge, severe inflammation, maxillary sinus tenderness. Mouth: Oral pharynx without lesions or masses, good dentition, MMM. postnasal drip Neck: Supple, trachea midline, no enlargement of anterior or posterior cervical nodes, no thyroid masses or goiter palpable. Cardio: Regular rate and rhythm, s1 and s2 normal, no murmur appreciated. Resp: Clear to auscultation bilaterally, no rhonchi, rales, wheezing or rubs Course Course Emergency Course: Portions of this record may have been created with voice recognition software. Level of Care: Express Care Visit Vital Signs Vital signs: Vital Signs Temperature 36.4 C 03/24/22 14:13 Pulse Ra
[2022-03-24 14:13] VITALS: BP 138/78; PULSE 63; RESP 18; TEMP 36.4; O2SAT 100
== END 2022-03-24 14:31 | disposition home or self-care (01) ==
PROVIDERS: Emergency Provider Nurse Practitioner Family; PCP Family Medicine
DX: J01.90 Acute sinusitis, unspecified (principal); Z87.891 Personal history of nicotine dependence; E78.5 Hyperlipidemia, unspecified; I10 Essential (primary) hypertension; E66.9 Obesity, unspecified; Z68.34 Body mass index [BMI] 34.0-34.9, adult; E28.2 Polycystic ovarian syndrome; Z94.0 Kidney transplant status
CPT/HCPCS: 99213; G0463

== ENCOUNTER → 2022-10-16 08:55 | Outpatient (CLI) | payer OTHER, SELFPAY ==
--- NOTE | ~2022-10-16 | MR_ITS ---
MRI of the brain Clinical History: Hearing loss Technique: Axial and sagittal T1-weighted images were acquired. These were followed by axial T2-weigh therese, diffusion weighted, gradient, and FLAIR images. Thin cut coronal T1-weighted and T2-weighted kaylie ges, and thin cut axial T1-weighted images were acquired through the internal auditory canals. Findings: There is no acute infarct, intracranial hemorrhage or mass lesion. There are several tiny f oci of increased signal in the periventricular white matter bilaterally, consistent with minimal motorcycle builder eriberto microvascular ischemic change. Ventricles and subarachnoid spaces are unremarkable. Orbits are unremarkable. Paranasal sinuses and m astoid air cells are clear. Major intracranial flow voids are intact. Sagittal midline structures are intact. No abnormal mass lesion seen at the internal auditory canals or cerebellopontine angle regions. IMPRESSION: No intracranial hemorrhage, mass lesion, or acute infarct. Consider postcontrast imaging for more sen sitive evaluation for small acoustic neuroma. Minimal chronic microvascular ischemic changes in the periventricular white matter. Reviewed, dictated and finalized at location . IMPRESSION: No intracranial hemorrhage, mass lesion, or acute infarct. Consider postcontras t imaging for more sensitive evaluation for small acoustic neuroma. Minimal chronic microvascular ischemic changes in the periventricular white mat ter.
== END ==
PROVIDERS: PCP Family Medicine; Visit Provider Otolaryngology
DX: H91.90 Unspecified hearing loss, unspecified ear (principal)
CPT/HCPCS: 70551

== ENCOUNTER → 2023-02-05 13:44 | Outpatient (CLI) | payer OTHER, SELFPAY ==
--- NOTE | ~2023-02-05 | CT_ITS ---
EXAMINATION: CT sinus wo con DATE: 02/05/2023 13:58 INDICATION: Frequent sinus infections, right-sided facial pressure, congestion. Headaches. Chronic si nusitis. TECHNIQUE: Computed tomography (CT) of the paranasal sinuses was performed without contrast. Iterativ e reconstruction technique was employed. Exam dose: 299.47 mGy-cm total exam DLP. COMPARISON: 03/20/2021 CT sinuses FINDINGS: There is prominent rightward bowing of nasal septum. There is moderately prominent soft tis leela swelling of the left nasal turbinates compared to the right side. Mild intralamellar cell of left middle nasal turbinate. The ostiomeatal units are patent. Small bilateral nasal antral windows. Minimal focal mucoperiosteal thickening of the right sphenoid sinus. Thickening of the superomedial left maxillary sinus in the posterior margin of the left maxillary ost ium. The paranasal sinuses otherwise are normally developed and aerated. Normal development and aeration of the mastoid air cells is noted bilaterally. Middle and inner ear apparatus appear normal bilaterally. IMPRESSION: Mild focal mucoperiosteal thickening of left maxillary and right sphenoid sinuses are ot herwise patent paranasal sinuses and mastoid air cells Patent ostiomeatal units Prominent rightward bowing of nasal septum Reviewed, dictated and finalized at Location A. Reviewed, dictated and finalized at location B. 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
== END ==
PROVIDERS: PCP Otolaryngology; Visit Provider Otolaryngology
DX: J32.9 Chronic sinusitis, unspecified (principal); J34.2 Deviated nasal septum
CPT/HCPCS: 70486

== ENCOUNTER 2023-12-04 11:15 | Outpatient (CLI) | payer OTHER, SELFPAY ==
--- NOTE | ~2023-12-04 | MR_ITS ---
EXAMINATION: MR foot LT wo con DATE: 12/04/2023 12:20 INDICATION: Left Achilles tendinitis with pain TECHNIQUE: Magnetic resonance imaging (MRI) of the left ankle, mid and hindfoot was performed without intravenous contrast. Sequences included sagittal, coronal, and axial proton-density weighted fast s pin echo without and with fat saturation. COMPARISON: None. FINDINGS: Medial ankle ligaments: Deep and superficial deltoid ligaments as well as the spring ligament are normal. Lateral ankle ligaments: The anterior and posterior inferior tibiofibular ligaments are normal. The anterior talofibular, calc aneofibular and posterior talofibular ligaments are normal. Tendons: Mild distal Achilles tendinosis without tear. There is a small enthesophyte at its calcaneal insertio n. The peroneus longus and brevis tendons are normal. The tibialis anterior and extensor hallucis maurice charley and extensor digitorum longus tendons are normal. Small amount of fluid extending along the jeniffer l tibialis posterior and flexor digitorum longus tendons consistent with mild tenosynovitis. The flex or hallucis longus tendon is normal. Plantar fascia: Moderate-sized plantar calcaneal spur. There is mild thickening and mild increased signal of the cent ral component of the plantar aponeurosis with minimal surrounding soft tissue edema consistent with m ild acute on chronic plantar fasciitis. Bones/other: Bone alignment is normal. No fracture or pathologic marrow replacing process. Multiloculated ganglion cyst in the hindfoot a portion of the soft tissues of the sinus Tarsi and the majority within the im mediately more cephalad central talus. Mild osteoarthritis at the ankle joint with small shallow zuleima dral ulceration with underlying small focus of subtle subarticular edema-like signal change at the ti bial plafond is additional mild polyarticular osteoarthritis at the second-fourth tarsal metatarsal j oints. There is marrow edema at the plantar/lateral aspect of the navicula likely related osteoarthri tis at its articulation with the cuboid and/or lateral cuneiform.. Fluid: Physiologic amount fluid in the joint spaces. IMPRESSION: 1. Mild distal Achilles tendinosis without tear but with small Achilles calcaneal enthesophyte. 2. Mild acute on chronic plantar fasciitis with moderate-sized plantar calcaneal spur. 3. 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 4. Mild pelvis posterior and flexor digitorum longus tenosynovitis with normal tendons. Reviewed, dictated and finalized at location A. IMPRESSION: 1. Mild distal Achilles tendinosis without tear but with small Achilles calcane al enthesophyte. 2. Mild acute on chronic plantar fasciitis with moderate-sized plantar calcanea l spur. 3. 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 4. Mild pelvis posterior and flexor digitorum longus tenosynovitis with normal tendons.
== END 2023-12-04 11:16 | disposition home or self-care (01) ==
LOC: MICIMG 11:15
PROVIDERS: PCP Podiatrist Foot & Ankle Surgery; Visit Provider Podiatrist Foot & Ankle Surgery
DX: M65.872 Other synovitis and tenosynovitis, left ankle and foot (principal); M76.62 Achilles tendinitis, left leg; M66.372 Spontaneous rupture of flexor tendons, left ankle and foot; M77.32 Calcaneal spur, left foot; M72.9 Fibroblastic disorder, unspecified; M19.072 Primary osteoarthritis, left ankle and foot
CPT/HCPCS: 73718